=== PATIENT | male | born 1975 | race Caucasian/White ===

== ENCOUNTER 2024-06-29 07:57 | Emergency (ER) | payer MEDICAID, SELFPAY ==
[2024-06-29 08:16] VITALS: BP 127/77; PULSE 98; RESP 18; TEMP 37.5; O2SAT 99; BMI 28.6
--- NOTE | 2024-06-29 08:21 | XR_ITS ---
Examination: PA lateral chest 2 views Technique: Upright PA lateral chest 2 views Exam date and time: June 29, 2024 at 0835 hrs. Indications: Coughing beginning 3 days ago. Findings: Early pneumonia in the right middle lobe Normal heart size No pulmonary edema Impression: Early pneumonia in the right middle lobe
--- NOTE | 2024-06-29 08:34 | PD.EDURI ---
Upper Respiratory Inf. RME/HPI General Chief Complaint: Shortness of Breath/Dyspnea Stated Complaint: HARD TO BREATHE ; SHAKES ; FEVER; KIDS FLU+ Time Seen by Provider: 06/29/24 08:01 Arrival date/time: 06/29/24 07:57 49-year-old male presents emergency department complains of cough, congestion, body aches and fever patient for symptoms ongoing for last 1 day there are no other associated symptoms or aggravating factors no other modifying factors, patient denies taking medication before coming to ER today Limitations: no limitations Related Data Previous Rx's ?Medication ?Instructions ?Recorded meclizine 25 mg tablet 25 mg PO BID PRN dizziness #20 tabs 11/06/22 diphenhydramine HCl 25 mg capsule 25 mg PO Q8H PRN allergic symptoms 01/17/23 (Benadryl) #30 caps ibuprofen 600 mg tablet 600 mg PO Q6H #30 tabs 01/17/23 ibuprofen 600 mg tablet 600 mg PO Q6H #30 tabs 12/18/23 azithromycin 500 mg tablet See Rx Instructions PO .COMPLEX #6 06/29/24 tabs benzonatate 100 mg capsule 100 mg PO TID #14 caps 06/29/24 ibuprofen 600 mg tablet 600 mg PO Q6H #30 tabs 06/29/24 oseltamivir 75 mg capsule (Tamiflu) 75 mg PO BID 5 days #10 caps 06/29/24 Allergies Allergy/AdvReac Type Severity Reaction Status Date / Time honey Allergy Severe Swelling Verified 06/29/24 07:59 of Lip/Tongue/Throat lactose Allergy Severe Swelling Verified 06/29/24 07:59 of Lip/Tongue/Throat peanut Allergy Severe Swelling Verified 06/29/24 07:59 of Lip/Tongue/Throat Penicillins Allergy Severe RASH Verified 06/29/24 07:59 Review of Systems Review of Systems Systems Reviewed: All systems reviewed, normal except as documented Constitutional Constitutional: Reports system reviewed and no additional complaints, except as documented, Reports body ache(s), Reports chills, Reports fatigue, Reports fever(s) and Reports headache(s) Eyes Eyes: Reports system reviewed and no additional complaints, except as documented and Denies blurry vision ENT Ears, Nose, Mouth, and Throat: Reports system reviewed and no additional complaints, except as documented, Reports headache(s), Reports nasal congestion and Reports nasal discharge Cardiovascular Cardiovascular: Reports system reviewed and no additional complaints, except as documented, Denies chest pain and Denies dyspnea Respiratory Respiratory: Reports system reviewed and no additional complaints, except as documented, Denies chest congestion, Denies cough and Denies dyspnea Gastrointestinal Gastrointestinal: Reports system reviewed and no additional complaints, except as documented and Denies abdominal pain Integumentary/Breasts Skin/Breast: Reports system reviewed and no additional complaints, except as documented and Denies rash Neurologic Neurologic: Reports system reviewed and no additional complaints, except as documented, Reports as per HPI and Reports headache(s) Endocrine Endocrine: Reports fatigue Past Medical History Past Medical History NEUROLOGIC: Negative Neurological Disorders CARDIAC: Positive Hypertension; Negative Cardiac Disorders or Congestive Heart Failure RESPIRATORY: Negative Chronic Obstructive Pulmonary Disease (COPD) or Asthma GASTROINTESTINAL: Negative Gastrointestinal Disorders GENITOURINARY: Negative Renal Disease MUSCULOSKELETAL: Negative Musculoskeletal Disorders ENDOCRINE: Negative Diabetes Mellitus Type 1 or Diabetes Mellitus Type 2 HEMATOLOGIC: Negative Sickle Cell Disease Social History SMOKING STATUS: Never smoker SUBSTANCE USE: does not use ED Exam General Limitations: Present no limitations General appearance: Present alert and in no apparent distress Head Head exam: Present atraumatic, normocephalic and normal inspection Eye Eye exam: Present normal appearance, PERRL and EOMI; Absent conjunctival injection ENT ENT exam: Present normal exam, normal oropharynx and mucous membranes moist Neck Neck exam: Present normal inspection, full ROM and trachea midline Chest Chest inspection: Present normal inspection and symmetric chest wall rise Respiratory Respiratory exam: Present normal lung sounds bilaterally; Absent respiratory distress, wheezes, stridor or accessory muscle use Cardiovascular Cardiovascular exam: Present regular rate, normal rhythm and normal heart sounds Abdominal Exam Abdominal exam: Present soft and normal bowel sounds; Absent distention, tenderness, guarding, rebound or rigidity Extremities Exam Extremities exam: Present normal inspection and full ROM Back Exam Back exam: Present normal inspection and full ROM Neurological Exam Neurological exam: Present alert, oriented X3 and CN II-XII intact Psychiatric Psychiatric exam: Present normal affect and normal mood Skin Skin exam: Present warm, dry, intact and normal color Course Quality Measures none Orders Category Date Time Status Bedside Influenza A&B Antigen Test NOW Care 06/29/24 08:21 Completed XR chest 2V Stat Exams 06/29/24 08:21 Completed Vital Signs Vital signs: Vital Signs Temperature 99.5 F 06/29/24 08:16 Pulse Rate 98 06/29/24 08:16 Respiratory Rate 18 06/29/24 08:16 Blood Pressure 127/77 06/29/24 08:16 Pulse Oximetry (%) 99 06/29/24 08:16 Oxygen Delivery Method Room Air 06/29/24 08:16 O2 saturation 99% room air within normal limits Upper Respiratory Infection MDM Narrative MDM Narrative:: 49-year-old male presents emergency department complains of cough, congestion, body aches and fever patient for symptoms ongoing for last 1 day there are no other associated symptoms or aggravating factors no other modifying factors, patient denies taking medication before coming to ER today Patient reports that his 2 children tested positive for influenza On exam patient does not appear ill or toxic patient reports no significant medical problems patient reports not Patient symptoms highly consistent with viral illness I suspect patient has flu Patient checked for influenza Patient tested positive for influenza Chest x-ray obtained consistent with early pneumonia Patient discharged home in no distress to follow-up with primary care doctor in the next 24 to 48 hours and for any worsening symptoms to return to the ER immediately Patient data External records reviewed:: [facility] previous records Clinical information provided by:: patient Social determinants that could affect healthcare access:: none Patient has the following chronic illnesses:: None How is presenting disease/condition affected by chronic disease/condition?: no chronic disease Evaluation data The following diagnostics were reviewed and interpreted by me:: lab results and radiology exam(s) Lab and/or radiology exams considered but not ordered:: Labs radiology obtain Interpretation Summary: Reviewed by me Medications / Prescriptions Medications or Prescriptions considered but not ordered:: Given Medication administrations:: Given Consultations Consultation(s) initiated? (list below): No Diagnosis Upper Respiratory Differential Diagnosis: upper respiratory infection, sinusitis, viral infection and pharyngitis Most likely diagnosis given after review of the tests above:: URI Admission Indicated Admission indicated?: not indicated Admission Request Was there a request for admission?: No Disposition Plan Disposition Plan: Discharge Discharge Attestation Discharge Attestation: The patient and all family members were given an opportunity to ask questions and understood the discharge instructions. Discharge instructions specifically effects, indications for sooner follow up or return to the emergency department, and the expected course of current diagnosis. Patient condition: Stable Discharge Plan Plan Patient Disposition: HOME (Self Care) Disposition Comment: Stable Prescriptions/Referrals Prescriptions/Med Rec: New benzonatate 100 mg capsule 100 mg PO TID Qty: 14 0RF ibuprofen 600 mg tablet 600 mg PO Q6H Qty: 30 0RF oseltamivir [Tamiflu] 75 mg capsule 75 mg PO BID 5 Days Qty: 10 0RF azithromycin 500 mg tablet See Rx Instructions .ROUTE .COMPLEX Qty: 6 0RF Rx Instructions: take 500 mg today (day 1), then 250 mg for 4 days (days 2-5) No Action diphenhydramine HCl [Benadryl] 25 mg capsule 25 mg PO Q8H PRN (Reason: allergic symptoms) Qty: 30 0RF ibuprofen 600 mg tablet 600 mg PO Q6H Qty: 30 0RF ibuprofen 600 mg tablet 600 mg PO Q6H Qty: 30 0RF meclizine 25 mg tablet 25 mg PO BID PRN (Reason: dizziness) Qty: 20 0RF Problem List Clinical Impression: Influenza A Patient/Caregiver Discharge Instructions Education Materials: ED Influenza (Adult) Additional Instructions: Please follow up with your primary care doctor in the next 24-48hrs for any worsening symptoms return here immediately Print Language: Macanese Stand Alone Forms: [employer] Award Info., Patient Portal Info Letter PA/DATA CAPTURE CLERK Supervising Physician PA/DATA CAPTURE CLERK Supervising Physician: Dr [email or web address]
== END 2024-06-29 09:27 | disposition home or self-care (01) ==
LOC: SERX 08:57
PROVIDERS: Emergency Provider Emergency Medicine; PCP Family Medicine
DX: J10.1 Influenza due to other identified influenza virus with other respiratory manifestations (principal)
CPT/HCPCS: 71046; 87400; 99283

== ENCOUNTER 2024-10-28 01:10 | Emergency (ER) | payer MEDICAID, SELFPAY ==
[2024-10-28 01:13] VITALS: BMI 30.5
[2024-10-28 01:33] VITALS: BP 138/87; PULSE 78; RESP 18; TEMP 36.8; O2SAT 97
--- NOTE | 2024-10-28 01:40 | EDNOTE_ITS ---
ED Skin Abcess FB-RME/HPI General Chief complaint: Skin/Abscess/Foreign Body Stated complaint: SPIDER BITE Time Seen by Provider: 10/28/24 01:30 Arrival date/time: 10/28/24 01:10 Limitations: no limitations RME / HPI RME / HPI narrative: 49-year-old male presents to the ED with complaint of spider bite to his pelvic region. 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 The bite occurred 2 days ago. He has had a low-grade temperature of 100.5 and is concerned about MRSA. Related Data Previous Rx's ?Medication ?Instructions ?Recorded meclizine 25 mg tablet 25 mg PO BID PRN dizziness # 20 tabs 11/06/22 diphenhydramine HCl 25 mg capsule 25 mg PO Q8H PRN all ergic symptoms 01/17/23 (Benadryl) #30 caps ibuprofen 600 mg tablet 600 mg PO Q6H #30 tabs 01/17 ibuprofen 600 mg tablet 600 mg PO Q6H #30 tabs 12/17 azithromycin 500 mg tablet See Rx Instructions PO .COM PLEX #6 06/29/24 tabs benzonatate 100 mg capsule 100 mg PO TID #14 caps 06/05 11/26 ibuprofen 600 mg tablet 600 mg PO Q6H #30 tabs 06/29 acetaminophen 300 mg-codeine 15 mg 1 tab PO Q6H PRN pa in #12 tabs 10/28/24 tablet clindamycin HCl 300 mg capsule 300 mg PO Q6H 10 days # 40 caps 10/28/24 meloxicam 15 mg tablet 15 mg PO QDAY pain #10 tabs 10/28/24 Allergies Allergy/AdvReac Type Severity Reaction Status Date / Time honey Allergy Severe Swelling Verified 10/28/24 01:17 of Lip/Tongue/Throat lactose Allergy Severe Swelling Verified 10/28/24 01:17 of Lip/Tongue/Throat peanut Allergy Severe Swelling Verified 10/28/24 01:17 of Lip/Tongue/Throat Penicillins Allergy Severe RASH Verified 10/28/24 01:17 Review of Systems Review of Systems Systems Reviewed: All systems reviewed, normal except as documented ED Exam Narrative Physical exam: Alert and oriented, pleasant 49-year-old male, mild acute pain distress. Nontoxic-appearing, afebrile. Left Lower abdomen/upper pelvic region with area of erythema (approx 6cm), warmth, tenderness as well as induration with central fluctuance. General Limitations: Present no limitations General appearance: Present alert and in no apparent distress Course Course Course Narrative: 49-year-old male presents to the ED with complaint of spider bite to his pelvic region. 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 The bite occurred 2 days ago. He has had a low-grade temperature of 100.5 and is concerned about MRSA. Alert and oriented, pleasant 49-year-old male, mild acute pain distress. Nontoxic-appearing, afebrile. Left Lower abdomen/upper pelvic region with area of erythema (approx 6cm), warmth, tenderness as well as induration with central fluctuance. Incision and drainage of abscess after anesthesia with 8 mL of lidocaine 1% with epinephrine. Good anesthesia obtained. The wound was then opened with an 11 blade scalpel. Immediate return of approximately 10 mL of purulent drainage. Wound culture obtained and is currently pending. Abscess probed and loculations broken. Wound packed with half-inch iodoform gauze. Patient tolerated procedure well. Dressing placed and patient discharged home in stable and impro antonio condition. Prior to discharge he was given Toradol 30 mg IM, and clindamycin 600 mg p.o. Quality Measures none Orders Category Date Time Status Miscellaneous Nursing Order NOW Care 10/28/24 01:52 Active Clindamycin [Cleocin] Med 10/28/24 01:43 Discontinued 600 mg PO X1 ONE Ketorolac Inj [Toradol Inj] Med 10/28/24 01:43 Discontinued 30 mg IM X1 ONE Lidocaine 1% W/Epi 1:100K 20Ml [Xylocaine 1% w/Epi 1: Med 10/28/24 01:51 Discontinued 100K 20 ml] 20 ml INFL X1 ONE Vital Signs Vital signs: Vital Signs Temperature 98.3 F 10/28/24 01:33 Pulse Rate 78 10/28/24 01:33 Respiratory Rate 18 10/28/24 01:33 Blood Pressure 138/87 H 10/28/24 01:33 Pulse Oximetry (%) 97 10/28/24 01:33 Oxygen Delivery Method Room Air 10/28/24 01:33 Procedures -ED Abscess I/D Site: abdomen Side (if applicable): left Local Anesthetic: lidocaine 1% and with epi Amount of anesthesia used (mL): 8 Technique: incised with #11 blade Amount of fluid expressed (mL): 10 Irrigation: Yes Packing used?: iodoform Complications: other (None) Skin / Abscess / Foreign Body MDM Narrative MDM Narrative:: 49-year-old male presents to the ED with complaint of spider bite to his pelvic region. 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 The bite occurred 2 days ago. He has had a low-grade te mperature of 100.5 and is concerned about MRSA. Alert and oriented, pleasant 49-year-old male, mild acute pain distress. Nontoxic-appearing, afebrile. Left Lower abdomen/upper pelvic region with area of erythema (approx 6cm), warmth, tenderness as well as induration with central fluctuance. Incision and drainage of abscess after anesthesia with 8 mL of lidocaine 1% with epinephrine. Good anesthesia obtained. The wound was then opened with an 11 blade scalpel. Immediate return of approximately 10 mL of purulent drainage. Wound culture obtained and is currently pending. Abscess probed and loculations broken. Wound packed with half-inch iodoform gauze. Patient tolerated procedure well. Dressing placed and patient discharged home in stable and improved condition. Prior to discharge he was given Toradol 30 mg IM, and clindamycin 600 mg p.o. Patient data External records reviewed:: None Clinical information provided by:: patient Social determinants that could affect healthcare access:: none Patient has the following chronic illnesses:: None How is presenting disease/condition affected by chronic disease/condition?: no chronic disease Evaluation data The following diagnostics were reviewed and interpreted by me:: other (specify) (None) Lab and/or radiology exams considered but not ordered:: N/A Interpretation Summary: N/A Medications / Prescriptions Medications or Prescriptions considered but not ordered:: N/A Medication administrations:: Medication Administration History Discontinued Medications Clindamycin HCl (Clindamycin 150 Mg Capsule) 600 mg PO X1 ONE Stop: 10/28/24 01:44 Last Admin: 10/28/24 03:31 Dose: 600 mg Documented By: CCT Ketorolac Tromethamine (Ketorolac Inj 60 Mg/2 Ml Vial) 30 mg IM X1 ONE Stop: 10/28/24 01:44 Last Admin: 10/28/24 03:18 Dose: 30 mg Documented By: CCT Lidocaine/Epinephrine (Lidocaine 1% W/Epi 1:100k 20 Ml Vial) 20 ml INFL X1 ONE Stop: 10/28/24 01:52 Last Admin: 10/28/24 03:31 Dose: 20 ml Documented By: CCT Comments: Administered by SAIGE Sanchez Toradol 30 mg IM, clindamycin 600 mg p.o., lidocaine 1% with epinephrine 8 mL Consultations Consultation(s) initiated? (list below): No Diagnosis Skin/Abscess Differential Diagnosis: abscess of skin or subcutaneous tissue and cellulitis Most likely diagnosis given after review of the tests above:: Abscess of left lower abdomen with surrounding cellulitis. Admission Indicated Admission indicated?: not indicated Explain why admission is indicated or not indicated:: Patient is stable for discharge Admission Request Was there a request for admission?: No Disposition Plan Disposition Plan: Discharge Discharge Attestation Discharge Attestation: The patient and all family members were given an opportunity to ask questions and understood the discharge instructions. Discharge instructions specifically effects, indications for sooner follow up or return to the emergency department, and the expected course of current diagnosis. Patient condition: Stable Discharge Plan Plan Patient Disposition: HOME (Self Care) Discharge Disposition comment: Stable and improved Prescriptions/Referrals Prescriptions/Med Rec: New clindamycin HCl 300 mg capsule 300 mg PO Q6H 10 Days Qty: 40 0RF acetaminophen-codeine 300-15 mg tablet 1 tab PO Q6H PRN (Reason: pain) Qty: 12 0RF meloxicam 15 mg tablet 15 mg PO QDAY Qty: 10 0RF No Action diphenhydramine HCl [Benadryl] 25 mg capsule 25 mg PO Q8H PRN (Reason: allergic symptoms) Qty: 30 0RF ibuprofen 600 mg tablet 600 mg PO Q6H Qty: 30 0RF ibuprofen 600 mg tablet 600 mg PO Q6H Qty: 30 0RF meclizine 25 mg tablet 25 mg PO BID PRN (Reason: dizziness) Qty: 20 0RF benzonatate 100 mg capsule 100 mg PO TID Qty: 14 0RF ibuprofen 600 mg tablet 600 mg PO Q6H Qty: 30 0RF azithromycin 500 mg tablet See Rx Instructions .ROUTE .COMPLEX Qty: 6 0RF Rx Instructions: take 500 mg today (day 1), then 250 mg for 4 days (days 2-5) Referrals: No Primary/Family,Physician [Primary Care Provider] - In 1 week Problem List Clinical Impression: Abscess of skin or subcutaneous tissue, Cellulitis Patient/Caregiver Discharge Instructions Education Materials: ED Abscess, Incision And Drainage, ED Cellulitis Additional Instructions: The packing in the wound should stay in place. Every day, pull on the packing approximately 1/2 inch. Do not completely remove the packing. As the wound heals from the inside, it well automatically push the packing out of place. Take the antibiotics as prescribed and complete the course even though you may be feeling better. Follow-up with your primary care physician in 24 to 48 hours. Return to the ED for any new or worsening symptoms. Print Language: Croatian Stand Alone Forms: [employer] Award Info., Patient Portal Info Letter SAIGE/KEVIN Supervising Physician SAIGE/KEVIN Supervising Physician: Dr Mireles
[2024-10-28] MEDS: KETOROLAC INJ 60 MG/2 ML VIAL 30 MG IM (03:18)
[2024-10-28] MEDS: CLINDAMYCIN 150 MG CAPSULE 600 MG PO (03:31)
[2024-10-28] MEDS: LIDOCAINE 1% W/EPI 1:100K 20 ML VIAL INFL (03:31)
[2024-10-28 05:15] VITALS: BP 136/79; PULSE 56; RESP 18; TEMP 36.9; O2SAT 96
== END 2024-10-28 05:15 | disposition home or self-care (01) ==
PROVIDERS: Emergency Provider Emergency Medicine
DX: L02.211 Cutaneous abscess of abdominal wall (principal); L03.311 Cellulitis of abdominal wall
CPT/HCPCS: 87070; 87077; 87186; 87205; 96372; 99283; J1885; J3490; A9270